=== PATIENT | male | born 1995 | race American Indian/Alaskan Native ===

== ENCOUNTER 2020-05-24 01:17 | Emergency (ER) | payer SELFPAY ==
[2020-05-24 01:58] VITALS: BP 131/86
--- NOTE | 2020-05-24 03:43 | Emergency Department Report ---
ED General Adult HPI - General Chief complaint: Medical Clearance Stated complaint: MED REFILL Source: patient Mode of arrival: Ambulatory Limitations: No Limitations - History of Present Illness Initial comments: Patient is a 24-year-old -[place] male with a history of anxiety and depression and and chronic insomnia who presents to the ED with persistent insomnia episodes daily after he ran out of his medications 3 months ago. Patient states that in the last 1 week he has hardly been able to get enough sleep because of the fact that he ran out of his medication. Patient states that he takes olanzapine every night for anxiety and insomnia. Patient states that he recently relocated to the area and has not been able to establish care with any primary care provider or psychiatrist. Patient denies suicidal or homicidal ideations, chest pain or shortness of breath, dizziness, syncope, fever and chills or abdominal pain. MD Complaint: Medication refill; insomnia; anxiety -: Gradual, month(s) (2) Location: head Radiation: non-radiation Severity scale (0 -10): 0 Consistency: intermittent Improves with: none Worsens with: none Associated Symptoms: denies: denies other symptoms, chest pain, cough, diaphoresis, fever/chills, headaches, loss of appetite, malaise, nausea/vomiting, rash, seizure, shortness of breath, syncope, weakness - Related Data Previous Rx's Medication Instructions Recorded Last Taken Type OLANzapine 15 mg PO HS PRN #30 05/24/20 Unknown Rx Allergies Allergy/AdvReac Type Severity Reaction Status Date / Time No Known Allergies Allergy Unverified 11/19/19 12:55 ED Review of Systems ROS: Stated complaint: MED REFILL Other details as noted in HPI Constitutional: denies: chills, fever Eyes: denies: eye pain, eye discharge, vision change ENT: denies: ear pain, throat pain Respiratory: denies: cough, shortness of breath, wheezing Cardiovascular: denies: chest pain, palpitations Endocrine: no symptoms reported Gastrointestinal: denies: abdominal pain, nausea, diarrhea Genitourinary: denies: urgency, dysuria Musculoskeletal: denies: back pain, joint swelling, arthralgia Skin: denies: rash, lesions Neurological: denies: headache, weakness, paresthesias Psychiatric: anxiety. denies: depression Hematological/Lymphatic: denies: easy bleeding, easy bruising ED Past Medical Hx - Past Medical History Previous Medical History?: Yes Hx Psychiatric Treatment: Yes (depression,anxiety) - Surgical History Past Surgical History?: No - Social History Smoking Status: Current Every Day Smoker Substance Use Type: None - Medications Home Medications: Home Medications Medication Instructions Recorded Confirmed Last Taken Type OLANzapine 15 mg PO HS PRN #30 05/24/20 Unknown Rx ED Physical Exam - General Limitations: No Limitations General appearance: alert, in no apparent distress - Head Head exam: Present: atraumatic, normocephalic, normal inspection - Eye Eye exam: Present: normal appearance, PERRL, EOMI Pupils: Present: normal accommodation - ENT ENT exam: Present: normal exam, normal orophraynx, mucous membranes moist, TM's normal bilaterally, normal external ear exam - Neck Neck exam: Present: normal inspection, full ROM - Respiratory Respiratory exam: Present: normal lung sounds bilaterally. Absent: respiratory distress, wheezes, chest wall tenderness, accessory muscle use - Cardiovascular Cardiovascular Exam: Present: regular rate, normal rhythm, normal heart sounds. Absent: systolic murmur, diastolic murmur, rubs, gallop - GI/Abdominal GI/Abdominal exam: Present: soft, normal bowel sounds. Absent: tenderness, guarding, rebound, hyperactive bowel sounds, hypoactive bowel sounds, mass - Extremities Exam Extremities exam: Present: normal inspection, full ROM, normal capillary refill - Back Exam Back exam: Present: normal inspection, full ROM. Absent: tenderness, CVA tenderness (L), muscle spasm, vertebral tenderness - Neurological Exam Neurological exam: Present: alert, oriented X3, CN II-XII intact, normal gait - Psychiatric Psychiatric exam: Present: normal affect, normal mood, anxious - Skin Skin exam: Present: warm, dry, intact, normal color. Absent: rash ED Course Vital Signs 05/24/20 01:55 Temperature 98.0 F Pulse Rate 60 Respiratory 18 Rate Blood Pressure 131/86 O2 Sat by Pulse 100 Oximetry ED Medical Decision Making - Medical Decision Making This is a 24-year-old -[place] male with a history of anxiety and depression and and chronic insomnia who presents to the ED with persistent insomnia episodes daily after he ran out of his medications 3 months ago. Patient states that in the last 1 week he has hardly been able to get enough sleep because of the fact that he ran out of his medication. Patient states that he takes olanzapine every night for anxiety and insomnia. Patient states that he recently relocated to the area and has not been able to establish care with any primary care provider or psychiatrist. In the ED, patient is alert and oriented x3 and is not in distress with normal vital signs. Patient was given prescription for his medications olanzapine and was given a referral to a local psychiatrist Dr. Willis to follow-up with. Patient was advised to contact Dr. Willsi first thing in the morning on Tuesday, May 26, 2020 to schedule a follow-up appointment. Patient was advised return to the ED immediately if symptoms get worse. - Differential Diagnosis Insomnia; anxiety; depression; Critical care attestation.: If time is entered above; I have spent that time in minutes in the direct care of this critically ill patient, excluding procedure time. ED Disposition Clinical Impression: Anxiety as acute reaction to exceptional stress Insomnia Qualifiers: Insomnia type: due to other mental disorder Qualified Code(s): F51.05 - Insomnia due to other mental disorder Disposition: DC-01 TO HOME OR SELFCARE Is pt being admited?: No Does the pt Need Aspirin: No Condition: Stable Additional Instructions: Follow-up with the psychiatrist as advised, drink plenty of fluids and take medication as needed. Return to the ED immediately if your symptoms get worse Prescriptions: OLANzapine 15 mg PO HS PRN #30 PRN Reason: Insomnia Referrals: JAMIE WILLIS MD [Staff Physician] - 3-5 Days Time of Disposition: 03:42 Print Language: CYMRO
== END 2020-05-24 03:54 | disposition home or self-care (01) ==
LOC: ED 01:17
DX: F41.9 Anxiety disorder, unspecified (principal); F43.9 Reaction to severe stress, unspecified; G47.00 Insomnia, unspecified; F17.200 Nicotine dependence, unspecified, uncomplicated; Z79.899 Other long term (current) drug therapy
CPT/HCPCS: 99282